=== PATIENT | female | born 1940 | race Caucasian/White ===

== ENCOUNTER 2016-06-10 11:02 | Observation (INO) | payer MEDICARE ==
[2016-06-10] VITALS (8 sets, daily range): BP systolic 114–141; BP diastolic 60–92; PULSE 60–85; RESP 14–20; O2SAT 96–97
[~2016-06-10] VITALS: Ht 182.9 cm; Wt 91.0 kg
--- NOTE | 2016-06-10 11:58 | DRSVH ---
PROCEDURE: X-RAY CHEST ONE VIEW, PORTABLE ([id number]) INDICATIONS: sob TECHNIQUE: One view of the chest was acquired. COMPARISON: [facility], CR, XR CHEST 2VW, 06/03/2016, 15:07. FINDINGS: Surgical changes and devices: None. Lungs and pleura: No pleural effusions or pneumothorax. Lungs are clear. Mediastinum: Mediastinal contours appear normal. Heart size is normal. Bones and chest wall: No suspicious bony lesions. Overlying soft tissues appear unremarkable. IMPRESSION: Normal for age. Source of shortness of breath is not seen. Dictated by: Delgado Gerard M.D. on 06/10/2016 at 11:57 Approved by: Delgado Gerard M.D. on 06/10/2016 at 11:57
[2016-06-10 12:47] LABS: BASOPHILS % (AUTO) 0.3 % (0-3); EOSINOPHILS % (AUTO) 0.4 % (0-5); MONOCYTES % (AUTO) 9.4 % (4-12); Mean Corpuscular Hemoglobin 30.3 pg (27.0-35.0); NEUTROPHILS % (AUTO) 73.7 % (40-74); Platelet Count 169 bil/L (150-400)
--- NOTE | 2016-06-10 12:53 | ED.REPORT ---
HPI-General Illness Date of Service Jun 10, 2016 ED Provider: Moncho Cole MD History of Present Illness: Patient sent from clinic with request for admit and evaluation of failure to thrive and exertional dyspnea A 75 year old female with a history of hypertension presents to the ED from her PCP with worsening generalized weakness onset nearly three months ago. This weakness has prevented her from remaining on her feet for any length of time or preparing food for herself. She also reports exertional shortness of breath, dizziness, reduced appetite, and recent weight loss (14lbs in 2-3 weeks). Three months ago the patient was found to be hypertensive when she was being seen for a stress test and was subsequently placed on blood pressure medication. However , this medication caused her to become hypotensive around the time of onset of her weakness. The patient denies chest pain, diaphoresis, dysuria, or hematuria. She was seen at Urgent Care one week ago for a cough/cold and was placed on doxycycline, which she believes caused an episode of nausea and vomiting last night. Nursing Notes Stated Complaint: WEAKNESS,NOT EATING Chief Complaint: General Complaint Nursing Notes Reviewed: Yes ([employer], [employer] ) Allergies: Coded Allergies: metronidazole (Verified Allergy, Severe, 06/10/16) CAN NOT REMEMBER REACTION Scheduled Aspirin (Aspirin) 81 Mg Tablet 81 MG PO DAILY Calcium Carbonate (Calcium) 600 Mg Tablet Unknown Dose PO DAILY Cholecalciferol (Vitamin D3) (Vitamin D) 1,000 Unit Capsule 1,000 UNIT PO DAILY Fish Oil/Dha/Epa (Fish Oil 1,200 mg Fish Oil) 1 Each Capsule 1 EACH PO DAILY Fluoxetine (Fluoxetine) 20 Mg Tablet 20 MG PO DAILY Multivits-Min/Iron/FA/Lutein (Centrum Silver Women Tablet) 8 Mg Iron-400 Mcg- 300 Mcg Tablet 1 EACH PO DAILY Scheduled PRN Lidocaine HCl (Aspercreme) 4 % Cream..g. 1 APPLIC EXT DIRECTED PRN PRN For Pain General Time Seen by MD: 11:46 Chief Complaint Weakness Hx Obtained From: Patient Arrived By: Walk-in Sudden in Onset?: No Onset Occurred: More than a week ago... (Nearly 3 months ago) Symptom Duration: Since onset Severity: Current: No pain currently Severity: Maximum: No pain Associated with: Reports: Dizziness, Nausea, Shortness of breath, Vomiting, Denies: Chest pain, Fever Pertinent Negative: Relieved by nothing Context Related History: Reports Recent medication Recent Healthcare: Recent doctor visit Similar Sx Previous: Yes Past Medical History Past Medical History Notes: Stress echo attempted but aborted due to hypertension 03/07 Past Medical History Hypertension Past Surgical History Right colectomy Colonoscopy Lumbar fusion D&C Benign breast biopsies Family History Father of metastatic gastric carcinoma age 76 Mother had CAD, at age 88 Smoking History Unknown if Ever Smoker Ambulatory Status Independent Review of Systems + reduced appetite Full Review of Systems Constitutional: Reports: Recent wt loss (14lbs in 2-3 weeks), Weakness - generalized Respiratory: Reports: Shortness of breath Cardiovascular: Denies: Chest pain GI: Reports: Nausea, Vomiting Female: Denies: Dysuria, Hematuria Skin: Denies Diaphoresis Neurologic: Reports: Dizziness Complete sys rev & neg: except as marked. Physical Exam Vital Signs Vital Signs Date Time Temp Pulse Resp B/P Pulse Ox O2 Delivery O2 Flow Rate FiO2 06/10/16 13:08 36.8 78 20 136/70 97 Room Air 06/10/16 11:15 72 17 141/77 97 Room Air 06/10/16 11:08 36.3 85 14 141/77 97 Room Air Initial VS: Reviewed, Vital signs normal Head / Eyes: Atraumatic, Normocephalic Respiratory: Breath sounds normal, Clear to auscultation, No respiratory distress Cardiovascular: Regular rate & rhythm, Heart sounds normal Skin: Warm, Dry, No cyanosis Neurologic: Alert, Oriented, Nonfocal Psychiatric: Mood/affect normal, Behavior normal, Normal thought content General/Constitutional: Alert, No acute distress Appearance / Presentation: Positive: Cachectic (Mild) Fatigued ENT: Atraumatic, Airway patent Mouth: Positive: Mucous membranes dry Interpretation & Diagnostics Lab Results Interpretation Result Diagram: 06/10/16 1219 06/10/16 1219 Test 06/10/16 12:19 White Blood Count 6.7th/mm3 (3.8-10.1) Red Blood Count 4.89mil/mm3 (3.90-5.20) Hemoglobin 14.8g/dL (12.0-15.6) Hematocrit 44.0% (35.0-46.0) Mean Corpuscular Volume 90.0fL (81-100) Mean Corpuscular Hemoglobin 30.3pg (27.0-35.0) Mean Corpuscular Hemoglobin Concent 33.6% (32.0-37.0) Red Cell Distribution Width 13.6% (12.3-15.4) Platelet Count 169bil/L (150-400) Neutrophils (%) (Auto) 73.7% (40-74) Lymphocytes (%) (Auto) 15.8% (14-46) Monocytes (%) (Auto) 9.4% (4-12) Eosinophils (%) (Auto) 0.4% (0-5) Basophils (%) (Auto) 0.3% (0-3) Sodium Level 141mEq/L (134-144) Potassium Level 4.0mEq/L (3.5-5.2) Chloride Level 104mEq/L (97-108) Carbon Dioxide Level 21mmol/L (18-29) Blood Urea Nitrogen 24mg/dL (8-27) Creatinine 0.79mg/dL (0.57-1.00) Estimat Glomerular Filtration Rate 102mL/min (>59) Glucose Level 104mg/dL (60-99) Lactic Acid Level 1.6mmol/L (0.4-2.0) Calcium Level 9.2mg/dL (8.5-10.1) Magnesium Level 1.8mg/dL (1.6-2.6) Total Bilirubin 0.7mg/dL (0.0-1.2) Aspartate Amino Transf (AST/SGOT) 21U/L (0-50) Alanine Aminotransferase (ALT/SGPT) 20U/L (0-32) Alkaline Phosphatase 50U/L (25-165) Troponin T < 0.010ug/L (0.0-0.011) Total Protein 6.5g/dL (6.4-8.4) Albumin 3.9g/dL (3.4-5.0) Thyroid Stimulating Hormone (TSH) 1.360uIU/mL (0.450-4.500) Lab Results Interpretation: CBC normal CPK normal Troponin negative Lactic acid normal ECG Interpretation ECG Interpretation: Sinus rhythm rate 64 Deep T-wave inversion laterally in leads V4, V5, V6, I, and aVL No acute ST depression Borderline prolonged QT interval w/ QTC interval of 501 New changes from 2004 Time: 11:31 Interpreted by: ED physician X-Ray Chest Interpretation Chest Xray Interpretation: IMPRESSION: Normal for age. Source of shortness of breath is not seen. Dictated by: Delgado Gerard M.D. on 06/10/2016 at 11:57 View: Portable, 1 view Interpretation / Wet Read by: Interpret - Radiologist Re-Eval/Medical Decision Med Decision/Clinical Course This is a 75-year-old female sent over from the primary care physician's office with concerns for failure to thrive, and dyspnea on exertion becoming extremely severe. The patient reports symptoms started a number of months ago, she was set up to undergo an echo stress test, was aborted due to hypertension, and never rescheduled. Reports problems with blood pressure medications which she been adjusted, but then reports profound weakness and shortness of breath with any minimal exertion. She was in a small apartment but is set up chairs including in the kitchen and every few feet because of her fatigue. She is so tired that she has not been able to prepare her meals, and has lost 14 pounds in just a couple weeks. She denies chest pain, she denies fever, she does note that she is lightheaded. She is scheduled for a cardiology appointment next week, was seen today and was profound worsening symptoms as sent to the emergency department. Denies abdominal pain, and she denies blood in her stools or dysuria. She has no additional complaints. The patient is cachectic and appears globally weak. She has no focal deficits but she is so weak she has difficulty lifting her legs. Her lungs are clear, she does not appear toxic or dipstick. Her EKG is notable for deep T-wave changes, and I have no prior EKG available for comparison. Chest x-ray is also no evidence of failure or acute disease. Her blood work is entirely underwhelming. However given the severity of her symptoms, at this point admission is warranted. Exact etiology remains unclear. Differential remains moderately extensive, I believe an echocardiogram as next step may be reasonable. The case has been discussed with the hospitalist. Source of Hx: Old records Time of Eval: 12:00 Patient Status: Condition improved Re-Evaluation/Progress Note: Discussed with patient x-ray results, diagnosis, and plan for admit. Patient agrees with plan for care and all questions were addressed. Consultation : Referral / Consult Name: Shaheed Spencer DO Consulted With: Hospitalist Call Returned at: 15:27 Multiple Coil Winder: Agrees with eval, Accepts admit Counseled Regarding: Diagnosis, Need for admission Discharge & Departure Primary Impression: Failure to thrive Failure to thrive age range: in adult Qualified Code: R62.7 - Adult failure to thrive Additional Impressions: Dyspnea on exertion Abnormal ECG Weight loss General weakness Disposition: ADMITTED TO HOSPITAL Discharge Condition All VS Reviewed: Yes Condition: Stable Referrals: Rolando Burks DO (PCP) [facility] Attestation Portions of this note were transcribed by Annabella Ziegler. I, Dr. Cole, personally performed the history, physical exam, and medical decision-making; I reviewed and confirmed the accuracy of the information in the transcribed note. Signed by: Nubia Cunningham, 06/10/2016, 16:14 copies to: Rolando Burks Matthew F MD Jun 10, 2016 12:53 ANNABELLA ZIEGLER Jun 10, 2016 13:09
[2016-06-10] MEDS ORDERED: 0.9% Sodium Chloride 1,000 ML IV ONE (13:25)
[2016-06-10 13:32] LABS: Magnesium 1.8 mg/dL (1.6-2.6)
[2016-06-10 13:33] LABS: TROPONIN T < 0.010 ug/L (0.0-0.011)
[2016-06-10] MEDS ORDERED: FISH1CAP15 PO (15:00)
[2016-06-10] MEDS ORDERED: MULT-1065 PO (15:00)
[2016-06-10] MEDS ORDERED: CHOL100045 PO (15:00)
[2016-06-10] MEDS ORDERED: CALC600T12 PO (15:00)
[2016-06-10] MEDS ORDERED: ASPI-973 PO (15:00)
[2016-06-10] MEDS ORDERED: LIDO76.5 EXT (15:25)
[2016-06-10] MEDS ORDERED: FLUO20TA28 PO (15:25)
[2016-06-10] MEDS ORDERED: Ondansetron 2 mg/mL 2 mL Inj IVPUSH PRN (16:05)
[2016-06-10] MEDS ORDERED: Alum-Mag Hydrox-Simeth 30 mL Suspension PO PRN (16:05)
--- NOTE | 2016-06-10 16:50 | NUR ---
Admit Admitted to floor. A&Ox3, denies pain. Will continue to monitor.
--- NOTE | 2016-06-10 17:08 | PCM.HPMED ---
Subjective Date of Service Jun 10, 2016 Primary Provider: Admitting Physician: Shaheed Spencer DO Primary Care Physician: Rolando Burks DO Attending Physician: Shaheed Spencer DO Chief Complaint: Weakness "dizziness" History of Present Illness: Patient is a 75yof with MHx hypertension, dyslipidemia, Crohn disease, anxiety, and depression sent from MD office to be evaluated for fatigue and "dizziness". Patient states feeling unsteadiness on the feet, palpitation, sob with sitting to standing. This started about 3-4mo ago, exacerbates with walking. This profoundly affected her life, she was unable to prepare food, PO intake decreased. She reported some weight lost. Patient admits to nausea. She denies any episode of syncope. No fever, chills, or night sweats. Per records, patient was seen numerous times outpatient for this. Work-ups including EKG was inconclusive. Lab work was completely benign. An incomplete echo stress test was done back in 03/10/16 was significant for possible underling arrhythmias. Test stopped due to severe hypertension. Patient was started on several medications around the same time these symptoms started: lisinopril, HCTZ, hydroxyzine pamoate, and fluoxetine. Though, most have been weened off, except for fluoxetine. Today, patient was seen by residency Clinic with profound SOB and positive orthostatics. Review of Systems: A comprehensive review of systems was conducted with the patient and found to be negative except as above in the History of Present Illness. Allergies Coded Allergies: metronidazole (Verified Allergy, Severe, 06/10/16) CAN NOT REMEMBER REACTION Home Medications Aspirin 81 mg daily Fluoxetine 20 mg daily Lisinopril 20 mg daily Hydrochlorothiazide 25 mg daily Vistaril 25 mg when necessary Doxycycline 100 mg twice a day (06/03-06/10) PMH Hypertension Anxiety Osteoarthritis Crohn's disease Surgical History Diverticular abscess in the right colon, status post hemicolectomy Appendectomy Lumbar spinal fusion Family History Father with colon cancer Mother with CHF Brother with NC and in 50's Social History Occupation: homemaker Hx Alcohol Use: No Hx Substance Use: No Hx Tobacco Use: No Smoking Status: Unknown if Ever Smoker Additional Information Echocardiogram Report Interpretation Summary The patient had an initial blood pressure of 180/100. Just prior to starting the treadmill the patient's blood pressure was measured at 190/110. It was measured again a short time later and was 210/110. At this point the stress echo was aborted due to blood pressure concerns. Baseline ECHO: The left ventricle is grossly normal size. Left ventricular ejection fraction is estimated to be 55-60%. Septal motion consistent with a conduction abnormality. The mitral valve leaflets appear mildly thickened, but open well. There is borderline mitral valve prolapse. Exam Vital Signs Vital Sign - Last Date Time Temp Pulse Resp B/P Pulse Ox O2 Delivery O2 Flow Rate FiO2 06/10/16 15:46 36.4 63 20 127/70 95 Room Air Exam Gen: Resting comfortably, lying flat at bedside. HEENT: Normocephalic, atraumatic. External ears without defect. Pupils equal, round, and reactive to light and accommodation. Anicteric sclerae, moist conjunctivae, and no lid lag. Oropharynx free of erythema and cobble stoning with moist mucosa. Neck: supple, no JVD Cardio: Regular rate and rhythm with no murmurs, rubs, or gallops appreciated Pulm: b/l air sound, no crackles, wheezes, or rhonchi. Normal respiratory effort with no use of accessory muscles. Abd: positive bowel tone. Soft, nontender, nondistended. Extremities: No clubbing, cyanosis, edema, or lymphadenopathy appreciated. Skin: Normal temperature, turgor, and texture; no rash, ulcers, or subcutaneous nodules appreciated. Neuro: Cranial nerves grossly intact. Normal muscle strength, tone, and bulk. Romberg test positive Psyc: Normal mood and affect. Alert and oriented to person, place, and time. While attempting to measure orthostatics, patient became diaphoretic, tachypneic , tachycardic, and unsteady to the knees. She tolerated standing for about 30sec. Quickly returned to baseline with when she lay down. Telemetry showed sinus tachycardia. Lab and Diagnostics Result Diagram: 06/10/16 1219 06/10/16 1219 X-Rays, CTs and MRIs PROCEDURE: X-RAY CHEST ONE VIEW, PORTABLE INDICATIONS: sob IMPRESSION: Normal for age. Source of shortness of breath is not seen. Dictated by: Delgado Gerard M.D. on 06/10/2016 at 11:57 12-lead ECG ECG Interpretation per ED note 06/10/2016: Sinus rhythm rate 64 Deep T-wave inversion laterally in leads V4, V5, V6, I, and aVL No acute ST depression Borderline prolonged QT interval w/ QTC interval of 501 New changes from 2005 Assessment & Plan Patient is a 75yof with MHx hypertension, dyslipidemia, Crohn disease, anxiety, and depression sent from MD office to be evaluated for fatigue and "dizziness". Disequilibrium, present on admission, active -- Labs cbc, electrolytes, thyroid all normal. Orthostatics normal as well, though she could not tolerate standing for 3min. -- Etiology unknown. Side effects of fluoxetine given the constellation of symptoms. -- Possible cardiac conduction abnormality. Perhaps autonomic neuropathy in the setting of disequilibrium,nausea, and orthostatics. Depression if organic causes r/o. -- Will ween down fluoxetine. -- Cardiology consult in the AM. Consider tilt-table test. -- Ordered labs RA, MAX, and CCP -- Cont NS 100cc/hr. Depression, present on admission, ongoing -- Fluoxetine 10mg daily. Weened down from Fluoxetine 20mg Hypertension, present on admission, ongoing -- Not hypertensive on this admission Antipyretic: Acetaminophen PRN Antinausea: Ondansetron PRN Bowel regiment PRN Patient is admitted under observation status with expected length of stay LESS than 2 midnights due to severity of presenting symptoms, risk of adverse event, and complexity of treatment plan. Pain Evaluation: Adequate Pain Control VTE Prophylaxis: Sub-Q Heparin (Unfractionated) Resuscitation Status: CPR: Attempt Resuscitation Time spent 45 minutes Attending Statement I have seen and evaluated patient at bedside in addition to directly supervising care provided by resident physician. I agree with above documentation. Nathan Rosario DO Jun 10, 2016 17:08 Shaheed Spencer DO Jun 11, 2016 09:12
[2016-06-10] MEDS: 0.9% Sodium Chloride 1,000 ML IV SCH (17:12)
[2016-06-11 00:21] VITALS: BP 108/66; PULSE 60; RESP 19; O2SAT 97
[2016-06-11] MEDS: Heparin 5,000 Unit/mL Inj SUBQ SCH ×2 (00:22→08:30)
[2016-06-11 00:44] LABS: APPEARANCE,URINE CLEAR (CLEAR,HAZY); COLOR,URINE DARK YELLOW (YELLOW); OCCULT BLOOD,URINE NEGATIVE (NEGATIVE); UROBILINOGEN,URINE NORMAL (NORMAL)
[2016-06-11] MEDS: 0.9% Sodium Chloride 1,000 ML IV SCH ×2 (02:05→05:26)
[2016-06-11 04:18] VITALS: BP_SYST 117; BP_SYST 122; BP_SYST 124; BP_DIAS 66; BP_DIAS 68; BP_DIAS 74; PULSE 61; RESP 18; O2SAT 95
--- NOTE | 2016-06-11 05:03 | NUR ---
Anxiety Pt denies any pain. Noted mild dyspnea with exertion. She gets anxious often and needs redirection and assurance. Education about SCDS and Heparin provided to patient but she refused them anyway. Orthostatics done per ordered. Pt requested to use bathroom instead of bsc. She is mild/moderate weak with use of FWW. 1 person contact guard assist.
[2016-06-11 05:43] VITALS: PULSE 51
[2016-06-11 07:52] VITALS: BP 127/76; PULSE 63; RESP 16; O2SAT 96
[2016-06-11 08:00] VITALS: PULSE 65
--- NOTE | 2016-06-11 12:29 | NUR ---
Case Management: Pt provided with MATHIS and Medicare Part D info. Pt unhappy with OBS status, states would not have stayed if had known last night. Questions answered. EDNA Shore RN Addendum: 06/11/16 at 1237 by TRANG ROSA CM Copies given to pt, original MATHIS placed on pt's hard chart. EDNA Shore RN
[2016-06-11 13:35] VITALS: BP 136/73; PULSE 62; RESP 18; O2SAT 97
--- NOTE | 2016-06-11 13:39 | PCM.DIMED ---
Discharge Instructions Date of Service Jun 11, 2016 Dates of Hospitalization Jun 10, 2016 at 15:22 Discharge Diagnosis Discharge Diagnosis Disequilibrium, present on admission, active Depression, present on admission, ongoing Hypertension, present on admission, ongoing Medication Instructions No changes were done to your medications. Diet No restrictions Activity No restrictions Call your provider Weakness (unilateral) Patient Instructions Please make sure to follow with your cardiology appointment on Tuesday. Follow-up with PCP in: 1 week Humaira Fontana DO Jun 11, 2016 13:39
--- NOTE | 2016-06-11 14:33 | NUR ---
Social Work Initial Assessment and Discharge: SW met with patient at bedside to discuss discharge plan. Patient is a 75 year old female admitted under observation status on 06/10/16 for failure to thrive and dyspnea on exertion. Patient payer as [employer]. Patient has no [employer]ci disability nor VA benefits. Patient PCP as MD Burks. Patient states residing in [facility]. Patient states pharmacy of choice as [facility]. Patient has no previous HHC, SNF, DME or AD history. Patient states being independent with needs and has no identified discharge needs at this time. Patient aware of therapy recommendations for HHC services. HHC choice list offered and declined. Patient states not wanting any HHC service arrangements at discharge and states she to manage care at home with assistance from [email or web address]. No other needs identified at this time. SW to follow. PLAN: Home via [email or web address] POV, pending clinical course. Patient denied need for HHC at this time. Vince GODDARD Addendum: 06/11/16 at 1440 by TIFFANY JIMENEZ Amended: Links added. Addendum: 06/11/16 at 1444 by TIFFANY JIMENEZ SW inquired about walker for home use. Patient denied need, despite recommendations from therapy. Patient niece and friend at beside state having one available at home for patient to use if needed. No other needs identified Vince GODDARD
--- NOTE | 2016-06-11 15:35 | NUR ---
Discharge Pt discharged at 1330. She was given education regarding discharge diagnoses. She was given discharge instructions and instructions for follow up care. She confirmed understanding of these instructions. She was not given any prescriptions to leave with. No changes were made to her home medications. Her IV was d/c'd. A staff member escorted the patient to the exit via wheelchair. Her niece picked her up there and was to take her home.
--- NOTE | 2016-06-12 18:49 | PCM.DC.MED ---
Discharge Summary Date of Service Jun 12, 2016 Dates of Hospitalization Date of Hospital Admission Jun 10, 2016 at 15:22 Date of Discharge: Jun 11, 2016 Providers: Admitting Physician: Shaheed Spencer DO Primary Care Physician: Rolando Burks DO Attending Physician: Shaheed Spencer DO Diagnosis at Time of Discharge Diagnosis at Time of Discharge Disequilibrium, present on admission, active Depression, present on admission, ongoing Hypertension, present on admission, ongoing Procedures XRay, CTs & MRIs PROCEDURE: X-RAY CHEST ONE VIEW, PORTABLE INDICATIONS: sob IMPRESSION: Normal for age. Source of shortness of breath is not seen. Dictated by: Delgado Gerard M.D. on 06/10/2016 at 11:57 ECG 12 Lead ECG Interpretation per ED note 06/10/2016: Sinus rhythm rate 64 Deep T-wave inversion laterally in leads V4, V5, V6, I, and aVL No acute ST depression Borderline prolonged QT interval w/ QTC interval of 501 New changes from [address] Smith's H and P: "Patient is a 75yof with MHx hypertension, dyslipidemia, Crohn disease, anxiety , and depression sent from MD office to be evaluated for fatigue and "dizziness ". Patient states feeling unsteadiness on the feet, palpitation, sob with sitting to standing. This started about 3-4mo ago, exacerbates with walking. This profoundly affected her life, she was unable to prepare food, PO intake decreased. She reported some weight lost. Patient admits to nausea. She denies any episode of syncope. No fever, chills, or night sweats. Per records, patient was seen numerous times outpatient for this. Work-ups including EKG was inconclusive. Lab work was completely benign. An incomplete echo stress test was done back in 03/10/16 was significant for possible underling arrhythmias. Test stopped due to severe hypertension. Patient was started on several medications around the same time these symptoms started: lisinopril, HCTZ, hydroxyzine pamoate, and fluoxetine. Though, most have been weened off, except for fluoxetine. Today, patient was seen by residency [facility] with profound SOB and positive orthostatics." Hospital Course Patient is a 75yof with MHx hypertension, dyslipidemia, Crohn disease, anxiety, and depression sent from MD office to be evaluated for fatigue and "dizziness". Disequilibrium, present on admission, resolving -- Labs cbc, electrolytes, thyroid all normal. Orthostatics normal as well, though she could not tolerate standing for 3min. -- Possible cardiac conduction abnormality. Perhaps autonomic neuropathy in the setting of disequilibrium,nausea, and orthostatics. Depression if organic causes r/o. -- Cardiology consult as outpatient on Tuesday. -- Given IVF Depression, present on admission, ongoing -- Fluoxetine 10mg daily Hypertension, present on admission, ongoing -- Not hypertensive on this admission Exam Vital Signs (Last) Date Time Temp Pulse Resp B/P Pulse Ox O2 Delivery O2 Flow Rate FiO2 06/11/16 13:35 37.0 62 18 136/73 97 Room Air Exam Gen: Resting comfortably HEENT: Normocephalic, atraumatic. External ears without defect. Pupils equal, round, and reactive to light and accommodation. Anicteric sclerae, moist conjunctivae, and no lid lag. Oropharynx free of erythema and cobble stoning with moist mucosa. Neck: supple, no JVD Cardio: Regular rate and rhythm with no murmurs, rubs, or gallops appreciated Pulm: b/l air sound, no crackles, wheezes, or rhonchi. Normal respiratory effort with no use of accessory muscles. Abd: positive bowel tone. Soft, nontender, nondistended. Extremities: No clubbing, cyanosis, edema, or lymphadenopathy appreciated. Skin: Normal temperature, turgor, and texture; no rash, ulcers, or subcutaneous nodules appreciated. Neuro: Cranial nerves grossly intact. Normal muscle strength, tone, and bulk. Psych: Normal mood and affect. Alert and oriented to person, place, and time. Test 06/10/16 12:19 06/10/16 23:40 06/11/16 06:30 White Blood Count 6.7th/mm3 (3.8-10.1) Red Blood Count 4.89mil/mm3 (3.90-5.20) Hemoglobin 14.8g/dL (12.0-15.6) Hematocrit 44.0% (35.0-46.0) Mean Corpuscular Volume 90.0fL (81-100) Mean Corpuscular Hemoglobin 30.3pg (27.0-35.0) Mean Corpuscular Hemoglobin Concent 33.6% (32.0-37.0) Red Cell Distribution Width 13.6% (12.3-15.4) Platelet Count 169bil/L (150-400) Neutrophils (%) (Auto) 73.7% (40-74) Lymphocytes (%) (Auto) 15.8% (14-46) Monocytes (%) (Auto) 9.4% (4-12) Eosinophils (%) (Auto) 0.4% (0-5) Basophils (%) (Auto) 0.3% (0-3) Lactic Acid Level 1.6mmol/L (0.4-2.0) Magnesium Level 1.8mg/dL (1.6-2.6) Total Bilirubin 0.7mg/dL (0.0-1.2) Aspartate Amino Transf (AST/SGOT) 21U/L (0-50) Alanine Aminotransferase (ALT/SGPT) 20U/L (0-32) Alkaline Phosphatase 50U/L (25-165) Troponin T < 0.010ug/L (0.0-0.011) Total Protein 6.5g/dL (6.4-8.4) Albumin 3.9g/dL (3.4-5.0) Thyroid Stimulating Hormone (TSH) 1.380uIU/mL (0.450-4.500) Free Thyroxine 1.64ng/dL (0.82-1.77) Urine Color Dark yellow (YELLOW) Urine Appearance Clear (CLEAR,HAZY) Urine pH 6.0 (5.0-8.0) Urine Specific [place] 1.025 (1.003-1.035) Urine Protein Negativemg/dL (NEG,TRACE) Urine Glucose (UA) Negativemg/dL (NEGATIVE) Urine Ketones 15mg/dL (NEGATIVE) Urine Occult Blood Negative (NEGATIVE) Urine Nitrite Negative (NEGATIVE) Urine Bilirubin Negative (NEGATIVE) Urine Urobilinogen Normalmg/dL (NORMAL) Urine Leukocyte Esterase Negative (NEGATIVE) Urine RBC 0-2/hpf (0-2) Urine WBC 0-5/hpf (0-5) Urine Epithelial Cells Few/hpf (NONE-MOD) Urine Crystals None seen (NONE SEEN) Urine Bacteria None/hpf (NONE-FEW) Urine Hyaline Casts None/lpf (NONE) Urine Granular Casts None seen (NONE SEEN) Urine Waxy Casts None seen (NONE SEEN) Urine Red Blood Cell Casts None seen (NONE SEEN) Urine White Blood Cell Casts None seen (NONE SEEN) Urine Mucus Present (None Seen) Urine Trichomonas None seen (NONE SEEN) Urine Yeast None (NONE SEEN) Urine Culture Reflexed Not indicated Sodium Level 144mEq/L (134-144) Potassium Level 4.1mEq/L (3.5-5.2) Chloride Level 110mEq/L (97-108) Carbon Dioxide Level 21mmol/L (18-29) Blood Urea Nitrogen 17mg/dL (8-27) Creatinine 0.64mg/dL (0.57-1.00) Estimat Glomerular Filtration Rate 130mL/min (>59) Glucose Level 103mg/dL (60-99) Calcium Level 8.1mg/dL (8.5-10.1) Rheumatoid Factor 9.9IU/mL (0.0-13.9) Discharge Medications Discharge Medications Aspirin (Aspirin) 81 Mg Tablet 81 MG PO DAILY (Reported) Calcium Carbonate (Calcium) 600 Mg Tablet Unknown Dose PO DAILY (Reported) Cholecalciferol (Vitamin D3) (Vitamin D) 1,000 Unit Capsule 1,000 UNIT PO DAILY (Reported) Fish Oil/Dha/Epa (Fish Oil 1,200 mg Fish Oil) 1 Each Capsule 1 EACH PO DAILY ( Reported) Fluoxetine (Fluoxetine) 20 Mg Tablet 20 MG PO DAILY (Reported) Multivits-Min/Iron/FA/Lutein (Centrum Silver Women Tablet) 8 Mg Iron-400 Mcg- 300 Mcg Tablet 1 EACH PO DAILY (Reported) As needed Lidocaine HCl (Aspercreme) 4 % Cream..g. 1 APPLIC EXT DIRECTED PRN PRN For Pain (Reported) Additional med instructions No changes were done to your medications. Followup Plan Discharge Diet: No restrictions Discharge Activity: No restrictions Patient Instructions Please make sure to follow with your cardiology appointment on Tuesday. Follow-up with PCP in: 1 week Time spent 35 min Attending Statement The patient was seen and examined together with Resident/House-staff on 06/11/16 and I agree with the history, exam and plan as outlined in the note above. Humaira Fontana DO Jun 12, 2016 18:49 Tra Mandujano Jun 13, 2016 16:56
== END 2016-06-11 15:30 | disposition home or self-care (01) ==
LOC: SED 11:02 → MOC 15:22
PROVIDERS: ADMIT Family Medicine; ATTEND Family Medicine
DX: E87.8 Other disorders of electrolyte and fluid balance, not elsewhere classified (principal); F32.9 Major depressive disorder, single episode, unspecified; I10 Essential (primary) hypertension; E78.5 Hyperlipidemia, unspecified; K50.90 Crohn's disease, unspecified, without complications; F41.9 Anxiety disorder, unspecified; R26.81 Unsteadiness on feet; M19.90 Unspecified osteoarthritis, unspecified site; Z79.82 Long term (current) use of aspirin
CPT/HCPCS: 36415; 71010; 80048; 80053; 81000; 82948; 83520; 83605; 83735; 84439; 84443; 84484; 85025; 86225; 86235; 86430; 87040; 93005; 96360; 97162; 99285; G0378; G8978; G8979; J7030